=== PATIENT | male | born 1940 | race American Indian/Alaskan Native ===

== ENCOUNTER 2020-09-27 00:52 | Emergency (ER) | payer MEDICARE ==
[2020-09-27 01:36] LABS: Basophils # (Auto) 0.1 K/mm3 (0.0-0.1); Eosinophils # (Auto) 0.1 K/mm3 (0.0-0.4); Eosinophils % (Auto) 2.2 % (0.0-4.3); Hemoglobin 11.5 gm/dl (11.8-15.2); Lymphocytes # (Auto) 1.9 K/mm3 (1.2-5.4); Mean Corpuscular HGB Conc 33 % (32-34); Mean Corpuscular Volume 88 fl (84-94); Monocytes # (Auto) 0.6 K/mm3 (0.0-0.8); Monocytes % (Auto) 9.7 % (0.0-7.3); Platelet Count 210 K/mm3 (140-440); Red Blood Count 3.97 M/mm3 (3.65-5.03); Red Cell Distribution Width 14.4 % (13.2-15.2)
[2020-09-27 01:56] LABS: Alanine Aminotransferase 13 units/L (7-56); Albumin 4.3 g/dL (3.9-5); BUN/Creatinine Ratio 12; Blood Urea Nitrogen 16 mg/dL (9-20); Calcium 9.9 mg/dL (8.4-10.2); Hemolysis Index 77
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
[2020-09-27 02:19] LABS: Bilirubin,Urine NEG (Negative); Blood,Urine NEG (Negative); Color,Urine Yellow (Yellow); Mucus,Urine FEW /HPF; Urobilinogen,Urine < 2.0 mg/dL (<2.0)
[2020-09-27 02:59] LABS: Amphetamine Screen,Urine PRESUMPTIVE NEGATIVE; Benzodiazepines Screen,Urine PRESUMPTIVE NEGATIVE; Cannabinoid Screen,Urine PRESUMPTIVE NEGATIVE; Cocaine Screen,Urine PRESUMPTIVE NEGATIVE; Methadone Screen,Urine PRESUMPTIVE NEGATIVE; Opiate Screen,Urine PRESUMPTIVE NEGATIVE
--- NOTE | 2020-09-27 02:59 | Cat Scan Report ---
CT head without contrast HISTORY: AMS. TECHNIQUE: Axial imaging performed from the skull apex through the skull base without the use of con trast. All CT scans at this location are performed using CT dose reduction for ALARA by means of aut omated exposure control. COMPARISON: MRI of the brain from 06/23/2019 FINDINGS: Parenchyma: No acute intracranial hemorrhage or parenchymal abnormality. Ventricles: There is mild diffuse brain atrophy with commensurate ventricular enlargement which is l ikely age appropriate. Soft tissues: Soft tissues including the orbits appear normal. Bones: No acute osseous abnormality. Sinuses: Sinuses and mastoid air cells are clear. IMPRESSION: No acute abnormality. Signer Name: Perfecto Choudhary MD Signed: 09/27/2020 2:54 AM Workstation Name: [id number]
[2020-09-27] MEDS ORDERED: ZIPRASIDONE MESYLATE 20 MG VIAL IM ONE ×2 (03:35→03:45)
[2020-09-27] MEDS ORDERED: LORazepam 2 MG/ML VIAL IM ONE (07:29)
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
[2020-09-27 17:47] VITALS: BP 149/72
== END 2020-09-27 17:47 ==
LOC: ED 00:52
DX: R41.82 Altered mental status, unspecified (principal); Z20.828 Contact with and (suspected) exposure to other viral communicable diseases; F03.90 Unspecified dementia, unspecified severity, without behavioral disturbance, psychotic disturbance, mood disturbance, and anxiety; F29 Unspecified psychosis not due to a substance or known physiological condition; Z79.899 Other long term (current) drug therapy
CPT/HCPCS: 36415; 70450; 80053; 80307; 81001; 82962; 84484; 85025; 96372; 99284; J2060; J3486; U0003; 80320; G0480

== ENCOUNTER 2020-09-27 16:03 | Inpatient (IN) | payer MEDICARE ==
--- NOTE | 2020-09-27 20:38 | Consultation ---
History of Present Illness - Reason for Consult Consult date: 09/27/20 Requesting physician: LEANNE CAMACHO - History of Present Illness 80 YO Male with Vascular Dementia with Behavioral Disturbance, Cerebral Atherosclerosis, DM admitted to [facility] for Psychiatric stabilization. Patient seen and evaluated and found to be in no acute distress. Patient appears agitated. No reported nursing events. Patient has decreased verbalization. Past History Past Medical History: diabetes, hypertension Past Surgical History: No surgical history, Other (Reviewed) Social history: Family history: diabetes, hypertension Medications and Allergies Allergies Allergy/AdvReac Type Severity Reaction Status Date / Time No Known Allergies Allergy Unverified 09/27/20 16:48 Active Meds: Active Medications Risperidone (Risperdal) 0.5 mg PO BID MICHAEL Review of Systems ROS unobtainable: due to mental status Exam - Constitutional General appearance: Present: no acute distress - EENT Eyes: Present: PERRL ENT: hearing intact, clear oral mucosa - Neck Neck: Present: supple, normal ROM - Respiratory Respiratory effort: normal Respiratory: bilateral: CTA - Cardiovascular Heart Sounds: Present: S1 & S2. Absent: rub, click - Extremities Extremities: pulses symmetrical, No edema Peripheral Pulses: within normal limits - Abdominal General gastrointestinal: Present: soft, non-tender, non-distended, normal bowel sounds Male genitourinary: Present: normal - Integumentary Integumentary: Present: clear, warm, dry - Musculoskeletal Musculoskeletal: gait normal, strength equal bilaterally - Psychiatric Psychiatric: appropriate mood/affect, intact judgment & insight - Neurologic Neurologic: CNII-XII intact, moves all extremities Results - Labs Labs: Abnormal lab results 09/27/20 Range/Units 19:55 POC Glucose 123 H (70-105) mg/dL Assessment and Plan - Patient Problems (1) Vascular dementia with behavioral disturbance Current Visit: Yes Status: Acute Plan to address problem: Verbal prompting, verbal redirection, benzodiazepine therapy as clinically ind icated. (2) Cerebral atherosclerosis Current Visit: Yes Status: Acute Plan to address problem: Risk factor reduction, supportive care. (3) Diabetes Current Visit: Yes Status: Acute Plan to address problem: Accu-Chek, supportive care, continue medical management, insulin protocol.
[2020-09-27] MEDS: risperiDONE 0.25 MG TAB PO SCH (21:14)
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
[2020-09-28] MEDS: risperiDONE 0.25 MG TAB PO SCH ×2 (10:21→22:29)
[2020-09-28] MEDS: QUEtiapine 25 MG TAB PO SCH ×2 (10:21→22:30)
[2020-09-28] MEDS ORDERED: NON-FORMULARY EACH (Clonazepam [Klonopin] 1 MG) PO PRN (20:28)
[2020-09-28] MEDS ORDERED: NON-FORMULARY EACH (Metformin Hcl [Metformin] 1,000 MG) PO SCH (20:30)
[2020-09-28] MEDS ORDERED: INFLUENZA VACCINE IM SCH (20:30)
[2020-09-28] MEDS ORDERED: [UNRECOGNIZED DRUG - OTHER] IM SCH (20:30)
[2020-09-28] MEDS ORDERED: GLIMEPIRIDE 2 MG TAB PO SCH (21:00)
[2020-09-28] MEDS ORDERED: hydrOXYzine HCL 25 MG TAB PO SCH (21:00)
[2020-09-28] MEDS: FINASTERIDE 5 MG TAB PO SCH (21:55)
[2020-09-28] MEDS ORDERED: INSULIN DETEMIR 28 UNIT SQ SCH (22:00)
[2020-09-28] MEDS: PRAVASTATIN 20 MG TAB PO SCH (22:27)
[2020-09-28] MEDS: carvediloL 12.5 MG TAB PO SCH (22:27)
[2020-09-28] MEDS: DONEPEZIL 10 MG TAB PO SCH (22:27)
[2020-09-28] MEDS: INSULIN GLARGINE 100 UNITS/ML SUB-Q SCH (22:47)
[2020-09-29] MEDS: ZIPRASIDONE MESYLATE 20 MG VIAL IM PRN ×2 (04:24→19:25)
[2020-09-29] MEDS ORDERED: QUEtiapine 25 MG TAB PO SCH (07:29)
--- NOTE | 2020-09-29 07:31 | Progress Note ---
Subjective Date of service: 09/29/20 Principal diagnosis: Dementia with behavioral disturbance Subjective Comment: Psych Nurse: Pt was restless, agitated, combative throwing punches at staff, disruptive intruding to peers' , destructive causing damage to property. Pt was difficult to redirect and resistive to care. Geodon 10 IM given as ordered. Will continue to monitor. Psych Progress Patient has history of dementia that is worsening with disturbances such as property destruction and combativity. Due to history of dementia, patient unable to interact appropriately and answer questions logically. Patient behavior will be monitored and medication will be adjusted. Reason for continuing inpatient psychiatric hospitalization: Added Trazodone 100mg and increased Seroquel to 150 mg BID. Will continue to monitor. REVIEW OF SYSTEMS ROS cannot be reliably obtained from the patient due to her confusion and somnolence. MENTAL STATUS EXAMINATION General Appearance and Behavior: Age appropriate, good hygiene, wearing appropriate clothes, uncooperative polite with questioning. Cooperation: Withdrawn Psychomotor Behavior: Psychomotor agitation Mood: N/A Affect and affective range: Flat Thought Process: Tangential Thought Content: Paranoid and confused Speech: Normal volume, Regular rate and rhythm, Intellectual Functioning: Poor Suicidal Ideation: N/A Homicidal Ideation: N/A Impulse Control: impaired Insight and Judgment: Impaired Memory: memory impaired Attention: Distractible, Orientation: Alert, but disoriented and confused Diagnoses: Assessment and Plan - Psychiatric problem (1) Dementia with behavioral disturbance Current Visit: Yes Status: Acute Treatment Plan Risperidone started, Seroquel increased to 50mg BID Patient admitted for inpatient psychiatric evaluation, medication adjustment and close monitoring The patient's behavior, mood, sleep and appetite will be closely monitored. Patient enrolled in individual and group therapeutic sessions and encouraged to attend. Patient provided with a safe and structured environment. Patient's physical health needs will be addressed by the Hospitalist. Hospitalist Consulted Labs including CBC, CMP, Lipid profile and Hemoglobin A1C levels ordered for baseline reference Social Assessment will be completed and the Senior Licensing Manager will work with patient and family to ensure a suitable and safe disposition Medication adjustment will be made as clinically indicated Usual Wellness Scientologist/Preservation: - Start Trazodone 50 mg po QHS & 50 mg po QHS PRN between 10 PM & 2 AM for insomnia - Start Melatonin 5 mg po QHS to promote circadian rhythm - Start Brady-3 for brain health, reduce impulsivity, and as adjunctive treatment for mood disorder, continue upon discharge given overall benefits. - Start B1 prophylaxis with 200 mg po for 5 days The patient agreed on the treatment plan, understood the risk, benefit, alternative treatment, potential consequence of no treatment, and gave informed consent. Initial Certification Inpatient psych services: I certify that the inpatient psychiatric services are required for treatment that could reasonably be expected to improve the patient's condition. Estimated days:6 Post hospital care: primary care provider, psychiatric provider Legal Status: Voluntary Patient Problems: Current Active Problems Cerebral atherosclerosis (Acute) Diabetes (Acute) Vascular dementia with behavioral disturbance (Acute) Medications and Allergies Allergies Allergy/AdvReac Type Severity Reaction Status Date / Time No Known Allergies Allergy Unverified 09/27/20 16:48 Home Medications Medication Instructions Recorded Confirmed Last Taken Type Finasteride [Proscar] 5 mg PO DAILY 09/28/20 09/28/20 Unknown History Flu Vacc Sp5219(65Up)/Mf59c/Pf 0.5 ml IM UNK 09/28/20 09/28/20 Unknown History [Fluad Quad 1554-4558 Syringe] Glimepiride [Amaryl] 2 mg PO UNK 09/28/20 09/28/20 Unknown History Insulin Detemir (Nf) [Levemir 28 unit SQ BID 09/28/20 09/28/20 Unknown History Flextouch (Nf)] Metformin HCl [metFORMIN] 1,000 mg PO UNK 09/28/20 09/28/20 Unknown History Pneumoc 13-Ester Conj-Dip Crm/Pf 0.5 ml IM UNK 09/28/20 09/28/20 Unknown History [Prevnar 13] Pravastatin [Pravachol] 20 mg PO DAILY 09/28/20 09/28/20 Unknown History QUEtiapine [SEROquel] 25 mg PO BID 09/28/20 09/28/20 Unknown History Ramipril 10 mg PO UNK 09/28/20 09/28/20 Unknown History carvediloL [Coreg] 12.5 mg PO BID 09/28/20 09/28/20 Unknown History clonazePAM [Klonopin] 1 mg PO HS PRN 09/28/20 09/28/20 Unknown History donepeziL [Aricept] 10 mg PO QHS 09/28/20 09/28/20 Unknown History hydrOXYzine HCL [Atarax] 25 mg PO UNK 09/28/20 09/28/20 Unknown History Active Meds: Active Medications Carvedilol (Coreg) 12.5 mg PO BID [facility] Last Admin: 09/28/20 22:27 Dose: 12.5 mg Documented by: Clonazepam (Klonopin) 1 mg PO QHS PRN PRN Reason: Anxiety Donepezil HCl (Aricept) 10 mg PO QHS [facility] Last Admin: 09/28/20 22:27 Dose: 10 mg Documented by: Finasteride (Proscar) 5 mg PO DAILY [facility] Last Admin: 09/28/20 21:55 Dose: 5 mg Documented by: Glimepiride (Amaryl) 2 mg PO K [facility] Hydroxyzine HCl (Atarax) 25 mg PO [facility] Insulin Glargine (Lantus) 28 units SUB-Q BID [facility] Last Admin: 09/28/20 22:47 Dose: 28 units Documented by: Miscellaneous Medication (Flu Vacc Je9671(65up)/Mf59c/Pf [Fluad Quad 1089-8512 Syringe]) 0.5 ml IM [facility] Miscellaneous Medication (Metformin Hcl [Metformin]) 1,000 mg PO [facility] Miscellaneous Medication (Ramipril [Ramipril]) 10 mg PO [facility] Pravastatin Sodium (Pravachol) 20 mg PO QHS [facility] Last Admin: 09/28/20 22:27 Dose: 20 mg Documented by: Quetiapine Fumarate (Seroquel) 150 mg PO BID [facility] Ziprasidone (Geodon) 10 mg IM Q6H PRN PRN Reason: Agitation Last Admin: 09/29/20 04:24 Dose: 10 mg Documented by: Results - Results Labs/Vitals: Laboratory Last Values POC Glucose 140 mg/dL (70-105) H 09/29/20 07:07 Last Vital Signs Temp 98.8 F 09/28/20 22:23 Pulse 94 H 09/28/20 22:27 Resp 18 09/28/20 22:23 BP 163/75 09/28/20 22:27 Pulse Ox 95 09/28/20 22:23
[2020-09-29] MEDS: FINASTERIDE 5 MG TAB PO SCH (10:51)
[2020-09-29] MEDS: carvediloL 12.5 MG TAB PO SCH ×3 (10:51→22:27)
[2020-09-29] MEDS: QUEtiapine 100 MG TAB PO SCH ×3 (10:51→22:28)
[2020-09-29] MEDS: INSULIN GLARGINE 100 UNITS/ML SUB-Q SCH (10:55)
[2020-09-29] MEDS ORDERED: DEXTROSE 50% IN WATER (25GM) 50 ML SYRINGE IV PRN (18:40)
--- NOTE | 2020-09-29 18:53 | Progress Note ---
Assessment and Plan Assessment and plan: 80 YO Male with Vascular Dementia with Behavioral Disturbance, Cerebral Atherosclerosis, DM admitted to [facility] for Psychiatric stabilization. Patient seen and evaluated and found to be in no acute distress. Patient appears agitated. No reported nursing events. Patient has decreased verbaliza tion. (1) Diabetes Current Visit: Yes Status: Acute Plan to address problem: Accu-Chek, supportive care, continue medical management, insulin protocol. With hypoglycemia. We will discontinue all oral hypoglycemic agents. Will discontinue Lantus. Use as needed sliding scale. We will also add dextrose gel for hypoglycemia correction as patient is agitated and intolerant of the other medications. Discussed with nursing staff and all the methodologies to use. (2) Cerebral atherosclerosis Current Visit: Yes Status: Acute Plan to address problem: Risk factor reduction, supportive care. (3) Vascular dementia with behavioral disturbance Current Visit: Yes Status: Acute Plan to address problem: Verbal prompting, verbal redirection, benzodiazepine therapy as clinically indicated. History Interval history: Patient seen and examined called due to patient's persistent hypoglycemia. Patient remains very agitated was actually found sitting in another patient's room. Hospitalist Physical - Physical exam Narrative exam: VITAL SIGNS: Reviewed. GENERAL: The patient appears normally developed, agitated. Vital signs as documented. HEAD: No signs of head trauma. EYES: Pupils are equal. Extraocular motions intact. EARS: Hearing grossly intact. MOUTH: Oropharynx is normal. NECK: No adenopathy, no JVD. CHEST: Chest with clear breath sounds bilaterally. No wheezes, rales, or rhonchi. CARDIAC: Regular rate and rhythm. S1 and S2, without murmurs, gallops, or rubs. VASCULAR: No Edema. Peripheral pulses normal and equal in all extremities. ABDOMEN: Soft, non tender and non distended. No rebound or guarding, and no masses palpated. Bowel Sounds normal. MUSCULOSKELETAL: Good range of motion of all major joints. Extremities without clubbing, cyanosis or edema. NEUROLOGIC EXAM: Alert and oriented x 1 No focal sensory or strength deficits. Speech normal. Confusion following commands PSYCHIATRIC: Mood normal. SKIN: detail exam as documented in skin assessment - Constitutional Vitals: Temp Pulse Resp BP Pulse Ox 98.8 F 94 H 18 163/75 95 09/28/20 22:23 09/28/20 22:27 09/28/20 22:23 09/28/20 22:27 09/28/20 22:23 General appearance: Present: no acute distress Results - Labs Labs: Laboratory Last Values POC Glucose 107 mg/dL (70-105) H 09/29/20 16:24 Larson/IV: Voiding Method Toilet Active Medications - Current Medications Current Medications: Generic Name Dose Route Start Last Admin Trade Name Freq PRN Reason Stop Dose Admin Carvedilol 12.5 mg 09/28/20 22:00 09/29/20 10:51 Coreg PO Not Given BID MICHAEL Clonazepam 1 mg 09/28/20 20:49 Klonopin PO QHS PRN Anxiety Dextrose 50 ml 09/29/20 18:40 D50w (25gm) Syringe IV Q30MIN PRN Hypoglycemia Protocol Donepezil HCl 10 mg 09/28/20 22:00 09/28/20 22:27 Aricept PO 10 mg QHS MICHAEL Administration Finasteride 5 mg 09/28/20 21:00 09/29/20 10:51 Proscar PO Not Given DAILY MICHAEL Hydroxyzine HCl 25 mg 09/28/20 21:00 Atarax PO UNK MICHAEL Insulin Human Lispro 0 unit 09/29/20 22:00 Humalog SUB-Q ACHS MICHAEL Protocol Mirtazapine 30 mg 09/29/20 22:00 Remeron PO QHS MICHAEL Miscellaneous Medication 0.5 ml 09/28/20 20:30 Flu Vacc Bo5263(65up)/Mf59c/Pf [Fluad Quad 8965-7102 Syringe] IM UNK MICHAEL Miscellaneous Medication 1,000 mg 09/28/20 20:30 Metformin Hcl [Metformin] PO UNK MICHAEL Miscellaneous Medication 10 mg 09/28/20 20:30 Ramipril [Ramipril] PO UNK MICHAEL Pravastatin Sodium 20 mg 09/28/20 22:00 09/28/20 22:27 Pravachol PO 20 mg QHS MICHAEL Administration Quetiapine Fumarate 150 mg 09/29/20 10:00 09/29/20 10:51 Seroquel PO Not Given BID MICHAEL Ziprasidone 10 mg 09/29/20 04:17 09/29/20 04:24 Geodon IM 10 mg Q6H PRN Administration Agitation
[2020-09-29] MEDS ORDERED: WATER FOR INJ Sterile (PF) 10 ML ONE (19:22)
[2020-09-29] MEDS ORDERED: DEXTROSE/DEXTRIN/MALTOSE 24 GM CARB PER 31 GM TUBE PO PRN (20:29)
[2020-09-29] MEDS ORDERED: MIRTAZAPINE 30 MG TAB PO SCH (22:00)
[2020-09-29] MEDS ORDERED: traZODone 50 MG TAB PO SCH (22:00)
[2020-09-29] MEDS: PRAVASTATIN 20 MG TAB PO SCH ×2 (22:14→22:28)
[2020-09-29] MEDS: DONEPEZIL 10 MG TAB PO SCH ×2 (22:14→22:27)
[2020-09-29] MEDS: MIRTAZAPINE 30 MG TAB PO SCH ×2 (22:14→22:28)
[2020-09-29] MEDS: INSULIN LISPRO 100 UNIT/ML VIAL 3 mL SUB-Q SCH (22:28)
--- NOTE | 2020-09-30 07:37 | Progress Note ---
Subjective Date of service: 09/30/20 Principal diagnosis: Dementia with behavioral disturbance Subjective Comment: Psych Nurse: pt is alert and oriented to person, irritable ,uncooperative, combative toward staff, tried to hit staff several times, he went to another pt's room refused to come out, security assessor was called and pt was brought out of the pt's room. pt refused all po medication, refused snacks, fluid offered, pt refused, BS was 127. pt's initial blood sugar was elevated at 180/100, pulse 104, pt was agitated at the time it was taken. staff tried several times to recheck blood pressure, pt refused and tried to hit the advertising copy writer. security assessor came to unit and took pt to his room; he stay in his room pacing, talking to his self, he finally went to bed at 0115, no distress noted, will continue to monitor for safety. Psych Progress Patient has history of dementia that is worsening , continued with disturbances yesterday, security had to be called in, property destruction and combativity. Due to history of dementia, patient unable to interact appropriately and answer questions logically. Patient behavior will be monitored and medication will be adjusted. Reason for continuing inpatient psychiatric hospitalization: Pt refusing oral medications. Remeron for sleep maintainance, and increased Seroquel to 200 mg BID. Will continue to monitor. REVIEW OF SYSTEMS ROS cannot be reliably obtained from the patient due to her confusion and somnolence. MENTAL STATUS EXAMINATION General Appearance and Behavior: Age appropriate, good hygiene, wearing appropriate clothes, uncooperative polite with questioning. Cooperation: Withdrawn Psychomotor Behavior: Psychomotor agitation Mood: N/A Affect and affective range: Flat Thought Process: Tangential Thought Content: Paranoid and confused Speech: Normal volume, Regular rate and rhythm, Intellectual Functioning: Poor Suicidal Ideation: N/A Homicidal Ideation: N/A Impulse Control: impaired Insight and Judgment: Impaired Memory: memory impaired Attention: Distractible, Orientation: Alert, but disoriented and confused Diagnoses: Assessment and Plan - Psychiatric problem (1) Dementia with behavioral disturbance Current Visit: Yes Status: Acute Treatment Plan Hold off PO meds due to refusal. Will put Pt on Geodon BID 2 doses. check Vitals q2-4 hours. Risperidone started, Seroquel increased to 50mg BID Patient admitted for inpatient psychiatric evaluation, medication adjustment and close monitoring The patient's behavior, mood, sleep and appetite will be closely monitored. Patient enrolled in individual and group therapeutic sessions and encouraged to attend. Patient provided with a safe and structured environment. Patient's physical health needs will be addressed by the Hospitalist. Hospitalist Consulted Labs including CBC, CMP, Lipid profile and Hemoglobin A1C levels ordered for lynn miranda reference Social Assessment will be completed and the Accounting Systems Manager will work with patient and family to ensure a suitable and safe disposition Medication adjustment will be made as clinically indicated Usual Wellness Confucianism/Preservation: - Start Trazodone 50 mg po QHS & 50 mg po QHS PRN between 10 PM & 2 AM for insomnia - Start Melatonin 5 mg po QHS to promote circadian rhythm - Start Letona-3 for brain health, reduce impulsivity, and as adjunctive treatment for mood disorder, continue upon discharge given overall benefits. - Start B1 prophylaxis with 200 mg po for 5 days The patient agreed on the treatment plan, understood the risk, benefit, alternative treatment, potential consequence of no treatment, and gave informed consent. Initial Certification Inpatient psych services: I certify that the inpatient psychiatric services are required for treatment that could reasonably be expected to improve the patient's condition. Estimated days:5 Post hospital care: primary care provider, psychiatric provider Legal Status: Voluntary Patient Problems: Current Active Problems Cerebral atherosclerosis (Acute) Diabetes (Acute) Vascular dementia with behavioral disturbance (Acute) Medications and Allergies Allergies Allergy/AdvReac Type Severity Reaction Status Date / Time No Known Allergies Allergy Unverified 09/27/20 16:48 Home Medications Medication Instructions Recorded Confirmed Last Taken Type Finasteride [Proscar] 5 mg PO DAILY 09/28/20 09/28/20 Unknown History Flu Vacc [id number](65Up)/Mf59c/Pf 0.5 ml IM UNK 09/28/20 09/28/20 Unknown History [Fluad Quad 8823-8741 Syringe] Glimepiride [Amaryl] 2 mg PO UNK 09/28/20 09/28/20 Unknown History Insulin Detemir (Nf) [Levemir 28 unit SQ BID 09/28/20 09/28/20 Unknown History Flextouch (Nf)] Metformin HCl [metFORMIN] 1,000 mg PO UNK 09/28/20 09/28/20 Unknown History Pneumoc 13-Ester Conj-Dip Crm/Pf 0.5 ml IM UNK 09/28/20 09/28/20 Unknown History [Prevnar 13] Pravastatin [Pravachol] 20 mg PO DAILY 09/28/20 09/28/20 Unknown History QUEtiapine [SEROquel] 25 mg PO BID 09/28/20 09/28/20 Unknown History Ramipril 10 mg PO UNK 09/28/20 09/28/20 Unknown History carvediloL [Coreg] 12.5 mg PO BID 09/28/20 09/28/20 Unknown History clonazePAM [Klonopin] 1 mg PO HS PRN 09/28/20 09/28/20 Unknown History donepeziL [Aricept] 10 mg PO QHS 09/28/20 09/28/20 Unknown History hydrOXYzine HCL [Atarax] 25 mg PO UNK 09/28/20 09/28/20 Unknown History Active Meds: Active Medications Carvedilol (Coreg) 12.5 mg PO BID [facility] Last Admin: 09/29/20 22:27 Dose: Not Given Documented by: Clonazepam (Klonopin) 1 mg PO QHS PRN PRN Reason: Anxiety Dextrose (D50w (25gm) Syringe) 50 ml IV Q30MIN PRN; Protocol PRN Reason: Hypoglycemia Donepezil HCl (Aricept) 10 mg PO QHS [facility] Last Admin: 09/29/20 22:27 Dose: Not Given Documented by: Finasteride (Proscar) 5 mg PO DAILY [facility] Last Admin: 09/29/20 10:51 Dose: Not Given Documented by: Hydroxyzine HCl (Atarax) 25 mg PO K [facility] Insulin Human Lispro (Humalog) 0 unit SUB-Q [facility]; Protocol Last Admin: 09/29/20 22:28 Dose: Not Given Documented by: Mirtazapine (Remeron) 30 mg PO QHS [facility] Last Admin: 09/29/20 22:28 Dose: Not Given Documented by: Miscellaneous Medication (Metformin Hcl [Metformin]) 1,000 mg PO K [facility] Miscellaneous Medication (Ramipril [Ramipril]) 10 mg PO [facility] Pravastatin Sodium (Pravachol) 20 mg PO QHS [facility] Last Admin: 09/29/20 22:28 Dose: Not Given Documented by: Quetiapine Fumarate (Seroquel) 200 mg PO BID [facility] Results - Results Labs/Vitals: Laboratory Last Values POC Glucose 87 mg/dL (70-105) 09/30/20 05:56 Last Vital Signs Temp 98.8 F 09/28/20 22:23 Pulse 104 H 09/29/20 22:27 Resp 18 09/28/20 22:23 BP 180/100 09/29/20 22:27 Pulse Ox 95 09/28/20 22:23
[2020-09-30] MEDS: INSULIN LISPRO 100 UNIT/ML VIAL 3 mL SUB-Q SCH ×3 (08:49→16:50)
[2020-09-30] MEDS ORDERED: DEXTROSE/DEXTRIN/MALTOSE 24 GM CARB PER 31 GM TUBE PO PRN (10:00)
[2020-09-30] MEDS ORDERED: WATER FOR INJ Sterile (PF) 10 ML ONE (11:17)
[2020-09-30] MEDS: QUEtiapine 100 MG TAB PO SCH ×2 (11:27→22:04)
[2020-09-30] MEDS: FINASTERIDE 5 MG TAB PO SCH (11:27)
[2020-09-30] MEDS: carvediloL 12.5 MG TAB PO SCH ×2 (11:27→22:06)
[2020-09-30] MEDS: ZIPRASIDONE MESYLATE 20 MG VIAL IM SCH ×2 (12:51→22:13)
--- NOTE | 2020-09-30 15:30 | Progress Note ---
Assessment and Plan Assessment and plan: 80 YO Male with Vascular Dementia with Behavioral Disturbance, Cerebral Atherosclerosis, DM admitted to [facility] for Psychiatric stabilization. Patient seen and evaluated and found to be in no acute distress. Patient appears agitated. No reported nursing events. Patient has decreased verbaliza tion. 09/30: Continue current care, do not restart oral hypoglycemic agents at this time. (1) Diabetes Current Visit: Yes Status: Acute Plan to address problem: Accu-Chek, supportive care, continue medical management, insulin protocol. With hypoglycemia. We will discontinue all oral hypoglycemic agents. Will discontinue Lantus. Use as needed sliding scale. We will also add dextrose gel for hypoglycemia correction as patient is agitated and intolerant of the other medications. Discussed with nursing staff and all the methodologies to use. (2) Cerebral atherosclerosis Current Visit: Yes Status: Acute Plan to address problem: Risk factor reduction, supportive care. (3) Vascular dementia with behavioral disturbance Current Visit: Yes Status: Acute Plan to address problem: Verbal prompting, verbal redirection, benzodiazepine therapy as clinically indicated. History Interval history: Patient seen and examined called due to patient's persistent hypoglycemia. No new complaints, BG stable Hospitalist Physical - Physical exam Narrative exam: VITAL SIGNS: Reviewed. GENERAL: The patient appears normally developed, agitated. Vital signs as documented. HEAD: No signs of head trauma. EYES: Pupils are equal. Extraocular motions intact. EARS: Hearing grossly intact. MOUTH: Oropharynx is normal. NECK: No adenopathy, no JVD. CHEST: Chest with clear breath sounds bilaterally. No wheezes, rales, or rhonchi. CARDIAC: Regular rate and rhythm. S1 and S2, without murmurs, gallops, or rubs. VASCULAR: No Edema. Peripheral pulses normal and equal in all extremities. ABDOMEN: Soft, non tender and non distended. No rebound or guarding, and no masses palpated. Bowel Sounds normal. MUSCULOSKELETAL: Good range of motion of all major joints. Extremities without clubbing, cyanosis or edema. NEUROLOGIC EXAM: Alert and oriented x 1 No focal sensory or strength deficits. Speech normal. Confusion following commands PSYCHIATRIC: Mood normal. SKIN: detail exam as documented in skin assessment - Constitutional Vitals: Temp Pulse Resp BP Pulse Ox 97.6 F 87 18 184/78 94 09/30/20 11:22 09/30/20 11:22 09/30/20 11:22 09/30/20 11:22 09/30/20 11:22 General appearance: Present: no acute distress Results - Labs Labs: Laboratory Last Values POC Glucose 109 mg/dL (70-105) H 09/30/20 11:44 Larson/IV: Voiding Method Incontinent Active Medications - Current Medications Current Medications: Generic Name Dose Route Start Last Admin Trade Name Freq PRN Reason Stop Dose Admin Carvedilol 12.5 mg 09/28/20 22:00 09/30/20 11:27 Coreg PO 12.5 mg BID MICHAEL Administration Clonazepam 1 mg 09/28/20 20:49 Klonopin PO QHS PRN Anxiety Dextrose 50 ml 09/29/20 18:40 D50w (25gm) Syringe IV Q30MIN PRN Hypoglycemia Protocol Donepezil HCl 10 mg 09/28/20 22:00 09/29/20 22:27 Aricept PO Not Given QHS [facility] Finasteride 5 mg 09/28/20 21:00 09/30/20 11:27 Proscar PO 5 mg DAILY MICHAEL Administration Hydroxyzine HCl 25 mg 09/28/20 21:00 Atarax PO UNK [facility] Insulin Human Lispro 0 unit 09/29/20 22:00 09/30/20 12:20 Humalog SUB-Q Not Given ACHS [facility] Protocol Mirtazapine 30 mg 09/29/20 22:00 09/29/20 22:28 Remeron PO Not Given QHS [facility] Miscellaneous Medication 1,000 mg 09/28/20 20:30 Metformin Hcl [Metformin] PO UNK [facility] Miscellaneous Medication 10 mg 09/28/20 20:30 Ramipril [Ramipril] PO UNK [facility] Pravastatin Sodium 20 mg 09/28/20 22:00 09/29/20 22:28 Pravachol PO Not Given QHS MICHAEL Quetiapine Fumarate 200 mg 09/30/20 09:00 09/30/20 11:27 Seroquel PO 200 mg BID MICHAEL Administration Valproic Acid 250 mg 09/30/20 14:00 Depakene PO TID MICHAEL Ziprasidone 10 mg 09/30/20 10:00 09/30/20 12:51 Geodon IM 09/30/20 22:01 10 mg BID MICHAEL Administration
[2020-09-30] MEDS: VALPROIC ACID 250 MG CAP PO SCH ×2 (16:50→22:03)
[2020-09-30] MEDS: PRAVASTATIN 20 MG TAB PO SCH (22:04)
[2020-09-30] MEDS: MIRTAZAPINE 30 MG TAB PO SCH (22:04)
[2020-09-30] MEDS: clonazePAM 0.5 MG TAB PO PRN (22:05)
[2020-09-30] MEDS: DONEPEZIL 10 MG TAB PO SCH (22:06)
[2020-10-01] MEDS: INSULIN LISPRO 100 UNIT/ML VIAL 3 mL SUB-Q SCH ×5 (04:33→21:32)
--- NOTE | 2020-10-01 09:03 | Progress Note ---
Subjective Date of service: 10/01/20 Principal diagnosis: Dementia with behavioral disturbance Subjective Comment: The patient's medical record was reviewed and the patient's progress was discussed with the nursing staff. The nurse caring for the patient says he has been combative and not eating much. During my interview with the patient, he is lying in bed. He is confused, and unable to give insight into what's going on with him. Reason for continuing inpatient psychiatric hospitalization: Pt refusing oral medications, episodes of combativeness. REVIEW OF SYSTEMS ROS cannot be reliably obtained from the patient due to her confusion and somnolence. MENTAL STATUS EXAMINATION General Appearance and Behavior: Age appropriate, good hygiene, wearing appropriate clothes, uncooperative Cooperation: Withdrawn Psychomotor Behavior: Psychomotor agitation Mood: N/A Affect and affective range: Flat Thought Process: Tangential Thought Content: Paranoid and confused Speech: Normal volume, Regular rate and rhythm, Intellectual Functioning: Poor Suicidal Ideation: N/A Homicidal Ideation: N/A Impulse Control: impaired Insight and Judgment: Impaired Memory: memory impaired Attention: Distractible, Orientation: Alert, but disoriented and confused Assessment and Plan (1) Dementia with behavioral disturbance Current Visit: Yes Status: Acute Treatment Plan Patient admitted for inpatient psychiatric evaluation, medication adjustment and close monitoring The patient's behavior, mood, sleep and appetite will be closely monitored. Patient enrolled in individual and group therapeutic sessions and encouraged to attend. Patient provided with a safe and structured environment. Patient's physical health needs will be addressed by the Hospitalist. Hospitalist Consulted Labs including CBC, CMP, Lipid profile and Hemoglobin A1C levels ordered for baseline reference Valproic level 10/02 Social Assessment will be completed and the Save All Operator will work with patient and family to ensure a suitable and safe disposition Medication adjustment will be made as clinically indicated Decrease seroquel 100mg po BID, will Start Risperidone 0.25mg po BID Usual Wellness Sikhism/Preservation: - Start Trazodone 50 mg po QHS & 50 mg po QHS PRN between 10 PM & 2 AM for insomnia - Start Melatonin 5 mg po QHS to promote circadian rhythm - Start [place]-3 for brain health, reduce impulsivity, and as adjunctive treatme nt for mood disorder, continue upon discharge given overall benefits. - Start B1 prophylaxis with 200 mg po for 5 days The patient agreed on the treatment plan, understood the risk, benefit, alterna tive treatment, potential consequence of no treatment, and gave informed consent. Estimated days: 4 Post hospital care: primary care provider, psychiatric provider Case staffed with Dr. Meraz Medications and Allergies Allergies Allergy/AdvReac Type Severity Reaction Status Date / Time No Known Allergies Allergy Unverified 09/27/20 16:48 Home Medications Medication Instructions Recorded Confirmed Last Taken Type Finasteride [Proscar] 5 mg PO DAILY 09/28/20 09/28/20 Unknown History Flu Vacc [id number](65Up)/Mf59c/Pf 0.5 ml IM UNK 09/28/20 09/28/20 Unknown History [Fluad Quad 0297-2764 Syringe] Glimepiride [Amaryl] 2 mg PO UNK 09/28/20 09/28/20 Unknown History Insulin Detemir (Nf) [Levemir 28 unit SQ BID 09/28/20 09/28/20 Unknown History Flextouch (Nf)] Metformin HCl [metFORMIN] 1,000 mg PO UNK 09/28/20 09/28/20 Unknown History Pneumoc 13-Ester Conj-Dip Crm/Pf 0.5 ml IM UNK 09/28/20 09/28/20 Unknown History [Prevnar 13] Pravastatin [Pravachol] 20 mg PO DAILY 09/28/20 09/28/20 Unknown History QUEtiapine [SEROquel] 25 mg PO BID 09/28/20 09/28/20 Unknown History Ramipril 10 mg PO UNK 09/28/20 09/28/20 Unknown History carvediloL [Coreg] 12.5 mg PO BID 09/28/20 09/28/20 Unknown History clonazePAM [Klonopin] 1 mg PO HS PRN 09/28/20 09/28/20 Unknown History donepeziL [Aricept] 10 mg PO QHS 09/28/20 09/28/20 Unknown History hydrOXYzine HCL [Atarax] 25 mg PO UNK 09/28/20 09/28/20 Unknown History Active Meds: Active Medications Carvedilol (Coreg) 12.5 mg PO BID [facility]HAEL Last Admin: 09/30/20 22:06 Dose: 12.5 mg Documented by: Clonazepam (Klonopin) 1 mg PO QHS PRN PRN Reason: Anxiety Last Admin: 09/30/20 22:05 Dose: 1 mg Documented by: Dextrose (D50w (25gm) Syringe) 50 ml IV Q30MIN PRN; Protocol PRN Reason: Hypoglycemia Donepezil HCl (Aricept) 10 mg PO QHS [facility] Last Admin: 09/30/20 22:06 Dose: 10 mg Documented by: Finasteride (Proscar) 5 mg PO DAILY [facility] Last Admin: 09/30/20 11:27 Dose: 5 mg Documented by: Hydroxyzine HCl (Atarax) 25 mg PO UNK [facility] Insulin Human Lispro (Humalog) 0 unit SUB-Q ACHS [facility]; Protocol Last Admin: 10/01/20 07:32 Dose: Not Given Documented by: Mirtazapine (Remeron) 30 mg PO QHS [facility] Last Admin: 09/30/20 22:04 Dose: 30 mg Documented by: Miscellaneous Medication (Metformin Hcl [Metformin]) 1,000 mg PO K [facility] Miscellaneous Medication (Ramipril [Ramipril]) 10 mg PO UNK [facility] Pravastatin Sodium (Pravachol) 20 mg PO QHS [facility] Last Admin: 09/30/20 22:04 Dose: 20 mg Documented by: Quetiapine Fumarate (Seroquel) 200 mg PO BID [facility] Last Admin: 09/30/20 22:04 Dose: 200 mg Documented by: Valproic Acid (Depakene) 250 mg PO TID [facility] Last Admin: 09/30/20 22:03 Dose: 250 mg Documented by: Results - Results Labs/Vitals: Laboratory Last Values POC Glucose 108 mg/dL (70-105) H 10/01/20 07:01 Last Vital Signs Temp 98.4 F 09/30/20 20:15 Pulse 68 09/30/20 22:06 Resp 18 09/30/20 20:15 BP 164/75 09/30/20 22:06 Pulse Ox 97 09/30/20 20:15
[2020-10-01] MEDS: FINASTERIDE 5 MG TAB PO SCH (12:14)
[2020-10-01] MEDS: risperiDONE 0.25 MG TAB PO SCH ×2 (12:14→21:31)
[2020-10-01] MEDS: QUEtiapine 100 MG TAB PO SCH ×2 (12:15→21:32)
[2020-10-01] MEDS: VALPROIC ACID 250 MG CAP PO SCH ×3 (12:15→20:46)
[2020-10-01] MEDS: carvediloL 12.5 MG TAB PO SCH ×2 (12:17→21:36)
[2020-10-01] MEDS: PRAVASTATIN 20 MG TAB PO SCH (21:31)
[2020-10-01] MEDS: MIRTAZAPINE 30 MG TAB PO SCH (21:31)
[2020-10-01] MEDS: DONEPEZIL 10 MG TAB PO SCH (21:31)
[2020-10-02] MEDS: INSULIN LISPRO 100 UNIT/ML VIAL 3 mL SUB-Q SCH ×4 (07:30→21:06)
--- NOTE | 2020-10-02 08:27 | Progress Note ---
Subjective Date of service: 10/02/20 Principal diagnosis: Dementia with behavioral disturbance Subjective Comment: The patient's medical record was reviewed and the patient's progress was discussed with the nursing staff. The nurse note states the patient refused to go to bed, pacing and mumbling back and front the unit. Observed that the medication has kicked in as he began to stagger and at the greater risk of fall. While resisting, commercial insurance underwriter led pt to the room with eyes half opened. During my interview with the patient, he is lying in bed. He is confused, and unable to give insight into what's going on with him. He does state "I wanna take a nap." Reason for continuing inpatient psychiatric hospitalization: Pt refusing oral medications, episodes of combativeness. REVIEW OF SYSTEMS ROS cannot be reliably obtained from the patient due to her confusion and somnolence. MENTAL STATUS EXAMINATION General Appearance and Behavior: Age appropriate, good hygiene, wearing appropriate clothes, uncooperative Cooperation: Withdrawn Psychomotor Behavior: Psychomotor agitation Mood: N/A Affect and affective range: Flat Thought Process: Tangential Thought Content: Paranoid and confused Speech: Normal volume, Regular rate and rhythm, Intellectual Functioning: Poor Suicidal Ideation: N/A Homicidal Ideation: N/A Impulse Control: impaired Insight and Judgment: Impaired Memory: memory impaired Attention: Distractible, Orientation: Alert, but disoriented and confused Assessment and Plan (1) Dementia with behavioral disturbance Current Visit: Yes Status: Acute Treatment Plan Patient admitted for inpatient psychiatric evaluation, medication adjustment and close monitoring The patient's behavior, mood, sleep and appetite will be closely monitored. Patient enrolled in individual and group therapeutic sessions and encouraged to attend. Patient provided with a safe and structured environment. Patient's physical health needs will be addressed by the Hospitalist. Hospitalist Consulted Labs including CBC, CMP, Lipid profile and Hemoglobin A1C levels ordered for baseline reference Valproic level 10/02 Social Assessment will be completed and the Boating Safety Officer will work with patient and family to ensure a suitable and safe disposition Medication adjustment will be made as clinically indicated Decrease seroquel 50mg po BID, will Increased Risperidone 0.5mg po BID Start Klonopin 0.25mg po daily, in addition to 1mg qhs Usual Wellness Bahai/Preservation: - Start Trazodone 50 mg po QHS & 50 mg po QHS PRN between 10 PM & 2 AM for insomnia - Start Melatonin 5 mg po QHS to promote circadian rhythm - Start [place]-3 for brain health, reduce impulsivity, and as adjunctive treatment for mood disorder, continue upon discharge given overall benefits. - Start B1 prophylaxis with 200 mg po for 5 days The patient agreed on the treatment plan, understood the risk, benefit, alternative treatment, potential consequence of no treatment, and gave informed consent. Estimated days: 2 Post hospital care: primary care provider, psychiatric provider Case staffed with Dr. Meraz Medications and Allergies Allergies Allergy/AdvReac Type Severity Reaction Status Date / Time No Known Allergies Allergy Unverified 09/27/20 16:48 Home Medications Medication Instructions Recorded Confirmed Last Taken Type Finasteride [Proscar] 5 mg PO DAILY 09/28/20 09/28/20 Unknown History Flu Vacc Ar4442(65Up)/Mf59c/Pf 0.5 ml IM UNK 09/28/20 09/28/20 Unknown History [Fluad Quad 7308-3848 Syringe] Glimepiride [Amaryl] 2 mg PO UNK 09/28/20 09/28/20 Unknown History Insulin Detemir (Nf) [Levemir 28 unit SQ BID 09/28/20 09/28/20 Unknown History Flextouch (Nf)] Metformin HCl [metFORMIN] 1,000 mg PO UNK 09/28/20 09/28/20 Unknown History Pneumoc 13-Ester Conj-Dip Crm/Pf 0.5 ml IM UNK 09/28/20 09/28/20 Unknown History [Prevnar 13] Pravastatin [Pravachol] 20 mg PO DAILY 09/28/20 09/28/20 Unknown History QUEtiapine [SEROquel] 25 mg PO BID 09/28/20 09/28/20 Unknown History Ramipril 10 mg PO UNK 09/28/20 09/28/20 Unknown History carvediloL [Coreg] 12.5 mg PO BID 09/28/20 09/28/20 Unknown History clonazePAM [Klonopin] 1 mg PO HS PRN 09/28/20 09/28/20 Unknown History donepeziL [Aricept] 10 mg PO QHS 09/28/20 09/28/20 Unknown History hydrOXYzine HCL [Atarax] 25 mg PO UNK 09/28/20 09/28/20 Unknown History Active Meds: Active Medications Carvedilol (Coreg) 12.5 mg PO BID [facility] Last Admin: 10/01/20 21:36 Dose: 12.5 mg Documented by: Clonazepam (Klonopin) 1 mg PO QHS PRN PRN Reason: Anxiety Last Admin: 09/30/20 22:05 Dose: 1 mg Documented by: Dextrose (D50w (25gm) Syringe) 50 ml IV Q30MIN PRN; Protocol PRN Reason: Hypoglycemia Donepezil HCl (Aricept) 10 mg PO QHS [facility] Last Admin: 10/01/20 21:31 Dose: 10 mg Documented by: Finasteride (Proscar) 5 mg PO DAILY [facility] Last Admin: 10/01/20 12:14 Dose: 5 mg Documented by: Hydroxyzine HCl (Atarax) 25 mg PO UNK [facility] Insulin Human Lispro (Humalog) 0 unit SUB-Q ACHS [facility]; Protocol Last Admin: 10/01/20 21:32 Dose: Not Given Documented by: Mirtazapine (Remeron) 30 mg PO QHS [facility] Last Admin: 10/01/20 21:31 Dose: 30 mg Documented by: Miscellaneous Medication (Metformin Hcl [Metformin]) 1,000 mg PO K [facility] Miscellaneous Medication (Ramipril [Ramipril]) 10 mg PO K [facility] Pravastatin Sodium (Pravachol) 20 mg PO QHS [facility] Last Admin: 10/01/20 21:31 Dose: 20 mg Documented by: Quetiapine Fumarate (Seroquel) 100 mg PO BID [facility] Last Admin: 10/01/20 21:32 Dose: 100 mg Documented by: Risperidone (Risperdal) 0.25 mg PO BID [facility] Last Admin: 10/01/20 21:31 Dose: 0.25 mg Documented by: Valproic Acid (Depakene) 250 mg PO TID [facility] Last Admin: 10/01/20 20:46 Dose: 250 mg Documented by: Ziprasidone (Geodon) 10 mg IM Q4H PRN PRN Reason: Agitation Results - Results Labs/Vitals: Laboratory Last Values POC Glucose 82 mg/dL (70-105) 10/02/20 06:54 Last Vital Signs Temp 97.4 F L 10/01/20 22:00 Pulse 83 10/01/20 22:00 Resp 20 10/01/20 22:00 BP 146/95 10/01/20 22:00 Pulse Ox 98 10/01/20 22:00
[2020-10-02] MEDS: QUEtiapine 25 MG TAB PO SCH ×2 (10:33→21:03)
[2020-10-02] MEDS: clonazePAM 0.5 MG TAB PO SCH (10:33)
[2020-10-02] MEDS: VALPROIC ACID 250 MG CAP PO SCH ×3 (10:33→20:10)
[2020-10-02] MEDS: FINASTERIDE 5 MG TAB PO SCH (10:34)
[2020-10-02] MEDS: carvediloL 12.5 MG TAB PO SCH ×2 (10:34→21:04)
[2020-10-02] MEDS: risperiDONE 0.25 MG TAB PO SCH ×2 (10:37→21:04)
[2020-10-02] MEDS: clonazePAM 0.5 MG TAB PO PRN (20:10)
[2020-10-02] MEDS: DONEPEZIL 10 MG TAB PO SCH (21:03)
[2020-10-02] MEDS: PRAVASTATIN 20 MG TAB PO SCH (21:04)
[2020-10-02] MEDS: MIRTAZAPINE 30 MG TAB PO SCH (21:04)
[2020-10-02] MEDS ORDERED: WATER FOR INJ Sterile (PF) 10 ML ONE (21:37)
[2020-10-02] MEDS: ZIPRASIDONE MESYLATE 20 MG VIAL IM PRN (21:54)
[2020-10-03] MEDS: INSULIN LISPRO 100 UNIT/ML VIAL 3 mL SUB-Q SCH (07:30)
--- NOTE | 2020-10-03 08:26 | Progress Note ---
Subjective Date of service: 10/03/20 Principal diagnosis: Dementia with behavioral disturbance Subjective Comment: The patient's medical record was reviewed and the patient's progress was discussed with the nursing staff. The nurse caring for the patient today states he is more talkative and with it during the day but gets confused, agitated, and hyper in the evening. During my interview with the patient, he is lying in bed. He is confused. When asking the patient why was he fighting the nurses yesterday, he replied "I wasn't fighting nobody. They don't know what they talking about." The patient then starts mumbling. Reason for continuing inpatient psychiatric hospitalization: the patient has episodes of agitation REVIEW OF SYSTEMS ROS cannot be reliably obtained from the patient due to her confusion and somnolence. MENTAL STATUS EXAMINATION General Appearance and Behavior: Age appropriate, good hygiene, wearing appropriate clothes, uncooperative Cooperation: Withdrawn Psychomotor Behavior: Psychomotor agitation Mood: N/A Affect and affective range: Flat Thought Process: Tangential Thought Content: Paranoid and confused Speech: Normal volume, Regular rate and rhythm, Intellectual Functioning: Poor Suicidal Ideation: N/A Homicidal Ideation: N/A Impulse Control: impaired Insight and Judgment: Impaired Memory: memory impaired Attention: Distractible, Orientation: Alert, but disoriented and confused Assessment and Plan (1) Dementia with behavioral disturbance Current Visit: Yes Status: Acute Treatment Plan Patient admitted for inpatient psychiatric evaluation, medication adjustment and close monitoring The patient's behavior, mood, sleep and appetite will be closely monitored. Patient enrolled in individual and group therapeutic sessions and encouraged to attend. Patient provided with a safe and structured environment. Patient's physical health needs will be addressed by the Hospitalist. Hospitalist Consulted Labs including CBC, CMP, Lipid profile and Hemoglobin A1C levels ordered for baseline reference Valproic level 47.9 Social Assessment will be completed and the Consulting Intern will work with patient and family to ensure a suitable and safe disposition Medication adjustment will be made as clinically indicated Increased Depakote DR 500mg po TID Give Klonopin 1mg po daily in the evening vs qhs also changed to scheduled vs PRN Decrease Seroquel 25mg po BID Increased Risperidone 1mg po BID Usual Wellness Voodoo/Preservation: - Start Trazodone 50 mg po QHS & 50 mg po QHS PRN between 10 PM & 2 AM for insomnia - Start Melatonin 5 mg po QHS to promote circadian rhythm - Start [place]-3 for brain health, reduce impulsivity, and as adjunctive treatment for mood disorder, continue upon discharge given overall benefits. - Start B1 prophylaxis with 200 mg po for 5 days The patient agreed on the treatment plan, understood the risk, benefit, alternative treatment, potential consequence of no treatment, and gave informed consent. Estimated days: 2 Post hospital care: primary care provider, psychiatric provider Case staffed with Dr. Meraz Medications and Allergies Allergies Allergy/AdvReac Type Severity Reaction Status Date / Time No Known Allergies Allergy Unverified 09/27/20 16:48 Home Medications Medication Instructions Recorded Confirmed Last Taken Type Finasteride [Proscar] 5 mg PO DAILY 09/28/20 09/28/20 Unknown History Flu Vacc [id number](65Up)/Mf59c/Pf 0.5 ml IM UNK 09/28/20 09/28/20 Unknown History [Fluad Quad 6503-1010 Syringe] Glimepiride [Amaryl] 2 mg PO UNK 09/28/20 09/28/20 Unknown History Insulin Detemir (Nf) [Levemir 28 unit SQ BID 09/28/20 09/28/20 Unknown History Flextouch (Nf)] Metformin HCl [metFORMIN] 1,000 mg PO UNK 09/28/20 09/28/20 Unknown History Pneumoc 13-Ester Conj-Dip Crm/Pf 0.5 ml IM UNK 09/28/20 09/28/20 Unknown History [Prevnar 13] Pravastatin [Pravachol] 20 mg PO DAILY 09/28/20 09/28/20 Unknown History QUEtiapine [SEROquel] 25 mg PO BID 09/28/20 09/28/20 Unknown History Ramipril 10 mg PO UNK 09/28/20 09/28/20 Unknown History carvediloL [Coreg] 12.5 mg PO BID 09/28/20 09/28/20 Unknown History clonazePAM [Klonopin] 1 mg PO HS PRN 09/28/20 09/28/20 Unknown History donepeziL [Aricept] 10 mg PO QHS 09/28/20 09/28/20 Unknown History hydrOXYzine HCL [Atarax] 25 mg PO UNK 09/28/20 09/28/20 Unknown History Active Meds: Active Medications Carvedilol (Coreg) 12.5 mg PO BID [facility] Last Admin: 10/02/20 21:04 Dose: 12.5 mg Documented by: Clonazepam (Klonopin) 1 mg PO QHS PRN PRN Reason: Anxiety Last Admin: 10/02/20 20:10 Dose: 1 mg Documented by: Clonazepam (Klonopin) 0.25 mg PO DAILY [facility] Last Admin: 10/02/20 10:33 Dose: 0.25 mg Documented by: Dextrose (D50w (25gm) Syringe) 50 ml IV Q30MIN PRN; Protocol PRN Reason: Hypoglycemia Donepezil HCl (Aricept) 10 mg PO QHS [facility] Last Admin: 10/02/20 21:03 Dose: 10 mg Documented by: Finasteride (Proscar) 5 mg PO DAILY [facility] Last Admin: 10/02/20 10:34 Dose: 5 mg Documented by: Hydroxyzine HCl (Atarax) 25 mg PO UNK [facility] Insulin Human Lispro (Humalog) 0 unit SUB-Q ACHS [facility]; Protocol Last Admin: 10/02/20 21:06 Dose: Not Given Documented by: Mirtazapine (Remeron) 30 mg PO QHS [facility] Last Admin: 10/02/20 21:04 Dose: 30 mg Documented by: Miscellaneous Medication (Metformin Hcl [Metformin]) 1,000 mg PO [facility] Miscellaneous Medication (Ramipril [Ramipril]) 10 mg PO [facility] Pravastatin Sodium (Pravachol) 20 mg PO QHS [facility] Last Admin: 10/02/20 21:04 Dose: 20 mg Documented by: Quetiapine Fumarate (Seroquel) 50 mg PO BID [facility] Last Admin: 10/02/20 21:03 Dose: 50 mg Documented by: Risperidone (Risperdal) 0.5 mg PO BID [facility] Last Admin: 10/02/20 21:04 Dose: 0.5 mg Documented by: Ziprasidone (Geodon) 10 mg IM Q4H PRN PRN Reason: Agitation Last Admin: 10/02/20 21:54 Dose: 10 mg Documented by: Results - Results Labs/Vitals: Laboratory Last Values POC Glucose 149 mg/dL (70-105) H 10/03/20 06:10 Valproic Acid 47.9 ug/mL (50-100) L 12/05/20 10:07 Last Vital Signs Temp 97.8 F 10/02/20 22:00 Pulse 60 10/02/20 22:00 Resp 18 10/02/20 22:00 BP 160/62 10/02/20 22:00 Pulse Ox 98 10/02/20 22:00
--- NOTE | 2020-10-03 11:18 | Progress Note ---
Assessment and Plan Assessment and plan: 80 YO Male with Vascular Dementia with Behavioral Disturbance, Cerebral Atherosclerosis, DM admitted to [facility] for Psychiatric stabilization. Patient seen and evaluated and found to be in no acute distress. Patient appears agitated. No reported nursing events. Patient has decreased verbaliza tion. 09/30: Continue current care, do not restart oral hypoglycemic agents at this time. 10/03: We will discontinue insulin sliding scale and start patient on low-dose Metformin 500 mg p.o. twice daily and check hemoglobin A1c. (1) Diabetes Current Visit: Yes Status: Acute Plan to address problem: Accu-Chek, supportive care, continue medical management, insulin protocol. With hypoglycemia. We will discontinue all oral hypoglycemic agents. Will discontinue Lantus. Use as needed sliding scale. We will also add dextrose gel for hypoglycemia correction as patient is agitated and intolerant of the other medications. Discussed with nursing staff and all the methodologies to use. (2) Cerebral atherosclerosis Current Visit: Yes Status: Acute Plan to address problem: Risk factor reduction, supportive care. (3) Vascular dementia with behavioral disturbance Current Visit: Yes Status: Acute Plan to address problem: Verbal prompting, verbal redirection, benzodiazepine therapy as clinically indicated. History Interval history: Patient seen and examined nursing staff reports that patient did have another episode of hypoglycemia after taking 2 units of insulin Hospitalist Physical - Physical exam Narrative exam: VITAL SIGNS: Reviewed. GENERAL: The patient appears normally developed,. Vital signs as documented. HEAD: No signs of head trauma. EYES: Pupils are equal. Extraocular motions intact. EARS: Hearing grossly intact. MOUTH: Oropharynx is normal. NECK: No adenopathy, no JVD. CHEST: Chest with clear breath sounds bilaterally. No wheezes, rales, or rhonchi. CARDIAC: Regular rate and rhythm. S1 and S2, without murmurs, gallops, or rubs. VASCULAR: No Edema. Peripheral pulses normal and equal in all extremities. ABDOMEN: Soft, non tender and non distended. No rebound or guarding, and no masses palpated. Bowel Sounds normal. MUSCULOSKELETAL: Good range of motion of all major joints. Extremities without clubbing, cyanosis or edema. NEUROLOGIC EXAM: Alert and oriented x 1 No focal sensory or strength deficits. Speech normal. Confusion following commands PSYCHIATRIC: Mood normal. SKIN: detail exam as documented in skin assessment - Constitutional Vitals: Temp Pulse Resp BP Pulse Ox 97.8 F 60 18 160/62 98 10/02/20 22:00 10/02/20 22:00 10/02/20 22:00 10/02/20 22:00 10/02/20 22:00 General appearance: Present: no acute distress Results - Labs Labs: Laboratory Last Values POC Glucose 149 mg/dL (70-105) H 10/03/20 06:10 Valproic Acid 47.9 ug/mL (50-100) L 10/02/20 10:07 [place]arson/IV: Voiding Method Toilet Active Medications - Current Medications Current Medications: Generic Name Dose Route Start Last Admin Trade Name Freq PRN Reason Stop Dose Admin Carvedilol 12.5 mg 09/28/20 22:00 10/02/20 21:04 Coreg PO 12.5 mg BID MICHAEL Administration Clonazepam 0.25 mg 10/02/20 10:00 10/02/20 10:33 Klonopin PO 0.25 mg DAILY MICHAEL Administration Clonazepam 1 mg 10/03/20 22:00 Klonopin PO QHS MICHAEL Dextrose 50 ml 09/29/20 18:40 D50w (25gm) Syringe IV Q30MIN PRN Hypoglycemia Protocol Divalproex Sodium 500 mg 10/03/20 14:[address] PO TID MICHAEL Donepezil HCl 10 mg 09/28/20 22:00 10/02/20 21:03 Aricept PO 10 mg QHS MICHAEL Administration Finasteride 5 mg 09/28/20 21:00 10/02/20 10:34 Proscar PO 5 mg DAILY MICHAEL Administration Hydroxyzine HCl 25 mg 09/28/20 21:00 Atarax PO UNK MICHAEL Metformin HCl 500 mg 10/03/20 17:00 Glucophage PO BIDDIAB MICHAEL Mirtazapine 30 mg 09/29/20 22:00 10/02/20 21:04 Remeron PO 30 mg QHS MICHAEL Administration Miscellaneous Medication 1,000 mg 09/28/20 20:30 Metformin Hcl [Metformin] PO UNK MICHAEL Miscellaneous Medication 10 mg 09/28/20 20:30 Ramipril [Ramipril] PO UNK MICHAEL Pravastatin Sodium 20 mg 09/28/20 22:00 10/02/20 21:04 Pravachol PO 20 mg QHS MICHAEL Administration Quetiapine Fumarate 25 mg 10/03/20 11:00 Seroquel PO BID MICHAEL Risperidone 1 mg 10/03/20 11:00 Risperdal PO BID MICHAEL Ziprasidone 10 mg 10/01/20 19:00 10/02/20 21:54 Geodon IM 10 mg Q4H PRN Administration Agitation
[2020-10-03] MEDS: FINASTERIDE 5 MG TAB PO SCH (12:58)
[2020-10-03] MEDS: risperiDONE 1 MG TAB PO SCH ×2 (12:58→21:39)
[2020-10-03] MEDS: QUEtiapine 25 MG TAB PO SCH ×2 (12:58→21:39)
[2020-10-03] MEDS: clonazePAM 0.5 MG TAB PO SCH (13:00)
[2020-10-03] MEDS: carvediloL 12.5 MG TAB PO SCH ×2 (13:43→21:35)
[2020-10-03] MEDS: DIVALPROEX DR 500 MG TAB PO SCH ×2 (13:58→20:24)
[2020-10-03] MEDS: metFORMIN 500 MG TAB PO SCH (16:28)
[2020-10-03] MEDS: VALPROIC ACID 250 MG CAP PO SCH (18:49)
[2020-10-03] MEDS: DONEPEZIL 10 MG TAB PO SCH (21:39)
[2020-10-03] MEDS: PRAVASTATIN 20 MG TAB PO SCH (21:39)
[2020-10-03] MEDS: MIRTAZAPINE 30 MG TAB PO SCH (21:39)
[2020-10-03] MEDS ORDERED: WATER FOR INJ Sterile (PF) 10 ML ONE (21:50)
[2020-10-03] MEDS ORDERED: clonazePAM 0.5 MG TAB PO SCH (22:00)
[2020-10-03] MEDS: ZIPRASIDONE MESYLATE 20 MG VIAL IM PRN (22:21)
--- NOTE | 2020-10-04 08:28 | Progress Note ---
Subjective Date of service: 10/04/20 Principal diagnosis: Dementia with behavioral disturbance Subjective Comment: The patient's medical record was reviewed and the patient's progress was discussed with the nursing staff. The nurse note states the patient spent the evening in bed, pt is alert and oriented to person, confused, disorganized, gait is very unsteady, high risk for fall, medication compliant, had about 75% of snack, pt became increasingly confused at approximately 2100, agitated, hallucinating, calling ''ADEN", yelling, struggling to get of the bed, combative, pt was very difficult to redirect During my interview with the patient, he is lying in bed. He is confused. When asking the patient how was he doing, he says "okay." When asked if he slept good, the patient says "a lil bit, ma'am." He then starts mumbling. Reason for continuing inpatient psychiatric hospitalization: the patient has episodes of agitation, and restlessness at night REVIEW OF SYSTEMS ROS cannot be reliably obtained from the patient due to her confusion and somnolence. MENTAL STATUS EXAMINATION General Appearance and Behavior: Age appropriate, good hygiene, wearing appropriate clothes, calm Cooperation: Withdrawn Psychomotor Behavior: Psychomotor agitation Mood: alright Affect and affective range: Flat Thought Process: Tangential Thought Content: Paranoid and confused Speech: Normal volume, Regular rate and rhythm, Intellectual Functioning: Poor Suicidal Ideation: N/A Homicidal Ideation: N/A Impulse Control: impaired Insight and Judgment: Impaired Memory: memory impaired Attention: Distractible, Orientation: Alert, but disoriented and confused Assessment and Plan (1) Dementia with behavioral disturbance Current Visit: Yes Status: Acute Treatment Plan Patient admitted for inpatient psychiatric evaluation, medication adjustment and close monitoring The patient's behavior, mood, sleep and appetite will be closely monitored. Patient enrolled in individual and group therapeutic sessions and encouraged to attend. Patient provided with a safe and structured environment. Patient's physical health needs will be addressed by the Hospitalist. Hospitalist Consulted Labs including CBC, CMP, Lipid profile and Hemoglobin A1C levels ordered for baseline reference Valproic level 47.9 Social Assessment will be completed and the Lead Teller will work with patient and family to ensure a suitable and safe disposition Medication adjustment will be made as clinically indicated d/c daytime klonopin Increased Klonopin 1.5mg po qhs d/c Seroquel 25mg po BID Start Melatonin 5mg po at 1800 Usual Wellness Catholic/Preservation: - Start Trazodone 50 mg po QHS & 50 mg po QHS PRN between 10 PM & 2 AM for insomnia - Start Melatonin 5 mg po QHS to promote circadian rhythm - Start [place]-3 for brain health, reduce impulsivity, and as adjunctive treatment for mood disorder, continue upon discharge given overall benefits. - Start B1 prophylaxis with 200 mg po for 5 days The patient agreed on the treatment plan, understood the risk, benefit, alternative treatment, potential consequence of no treatment, and gave informed consent. Estimated days: 2 Post hospital care: primary care provider, psychiatric provider Case staffed with Dr. Meraz Medications and Allergies Allergies Allergy/AdvReac Type Severity Reaction Status Date / Time No Known Allergies Allergy Unverified 09/27/20 16:48 Home Medications Medication Instructions Recorded Confirmed Last Taken Type Finasteride [Proscar] 5 mg PO DAILY 09/28/20 09/28/20 Unknown History Flu Vacc [id number](65Up)/Mf59c/Pf 0.5 ml IM UNK 09/28/20 09/28/20 Unknown History [Fluad Quad 9141-4211 Syringe] Glimepiride [Amaryl] 2 mg PO UNK 09/28/20 09/28/20 Unknown History Insulin Detemir (Nf) [Levemir 28 unit SQ BID 09/28/20 09/28/20 Unknown History Flextouch (Nf)] Metformin HCl [metFORMIN] 1,000 mg PO UNK 09/28/20 09/28/20 Unknown History Pneumoc 13-Ester Conj-Dip Crm/Pf 0.5 ml IM UNK 09/28/20 09/28/20 Unknown History [Prevnar 13] Pravastatin [Pravachol] 20 mg PO DAILY 09/28/20 09/28/20 Unknown History QUEtiapine [SEROquel] 25 mg PO BID 09/28/20 09/28/20 Unknown History Ramipril 10 mg PO UNK 09/28/20 09/28/20 Unknown History carvediloL [Coreg] 12.5 mg PO BID 09/28/20 09/28/20 Unknown History clonazePAM [Klonopin] 1 mg PO HS PRN 09/28/20 09/28/20 Unknown History donepeziL [Aricept] 10 mg PO QHS 09/28/20 09/28/20 Unknown History hydrOXYzine HCL [Atarax] 25 mg PO UNK 09/28/20 09/28/20 Unknown History Active Meds: Active Medications Carvedilol (Coreg) 12.5 mg PO BID [facility] Last Admin: 10/03/20 21:35 Dose: 12.5 mg Documented by: Clonazepam (Klonopin) 1.5 mg PO QHS [facility] Dextrose (D50w (25gm) Syringe) 50 ml IV Q30MIN PRN; Protocol PRN Reason: Hypoglycemia Divalproex Sodium (Depakote Dr) 500 mg PO TID [facility] Last Admin: 10/03/20 20:24 Dose: 500 mg Documented by: Donepezil HCl (Aricept) 10 mg PO QHS [facility] Last Admin: 10/03/20 21:39 Dose: 10 mg Documented by: Finasteride (Proscar) 5 mg PO DAILY [facility] Last Admin: 10/03/20 12:58 Dose: 5 mg Documented by: Hydroxyzine HCl (Atarax) 25 mg PO UNK [facility] Melatonin (Melatonin) 5 mg PO 1800 [facility] Metformin HCl (Glucophage) 500 mg PO BIDDIAB [facility] Last Admin: 10/03/20 16:28 Dose: 500 mg Documented by: Mirtazapine (Remeron) 30 mg PO QHS [facility] Last Admin: 10/03/20 21:39 Dose: 30 mg Documented by: Miscellaneous Medication (Metformin Hcl [Metformin]) 1,000 mg PO UNK [facility] Miscellaneous Medication (Ramipril [Ramipril]) 10 mg PO UNK [facility] Pravastatin Sodium (Pravachol) 20 mg PO QHS [facility] Last Admin: 10/03/20 21:39 Dose: 20 mg Documented by: Risperidone (Risperdal) 1 mg PO BID [facility] Last Admin: 10/03/20 21:39 Dose: 1 mg Documented by: Results - Results Labs/Vitals: Laboratory Last Values POC Glucose 147 mg/dL (70-105) H 10/04/20 06:19 Valproic Acid 47.9 ug/mL (50-100) L 10/02/20 10:07 Last Vital Signs Temp 98.4 F 10/03/20 22:00 Pulse 78 10/03/20 22:00 Resp 18 10/03/20 22:00 BP 166/70 10/03/20 22:00 Pulse Ox 96 10/03/20 22:00
[2020-10-04] MEDS: metFORMIN 500 MG TAB PO SCH ×2 (12:42→18:00)
[2020-10-04] MEDS: LISINOPRIL 20 MG TAB PO SCH (12:42)
[2020-10-04] MEDS: carvediloL 12.5 MG TAB PO SCH ×2 (12:43→21:34)
[2020-10-04] MEDS: risperiDONE 1 MG TAB PO SCH ×2 (12:43→21:33)
[2020-10-04] MEDS: FINASTERIDE 5 MG TAB PO SCH (12:43)
[2020-10-04] MEDS: DIVALPROEX DR 500 MG TAB PO SCH ×3 (12:44→20:26)
[2020-10-04] MEDS: MELATONIN 5 MG TAB PO SCH (18:00)
[2020-10-04] MEDS: PRAVASTATIN 20 MG TAB PO SCH (21:33)
[2020-10-04] MEDS: MIRTAZAPINE 30 MG TAB PO SCH (21:33)
[2020-10-04] MEDS: clonazePAM 0.5 MG TAB PO SCH (21:34)
[2020-10-04] MEDS: DONEPEZIL 10 MG TAB PO SCH (21:38)
--- NOTE | 2020-10-05 08:12 | Progress Note ---
Subjective Date of service: 10/05/20 Principal diagnosis: Dementia with behavioral disturbance Subjective Comment: The patient's medical record was reviewed and the patient's progress was discussed with the nursing staff. The nurse note states the patient rested w/o incident overnight. No resistance to treatment regiments and no acute distress observed. During my interview with the patient, he is lying in bed. He is confused. The patient says he's doing "okay." He says he slept "good" when asked. He is calm and cooperative. Reason for continuing inpatient psychiatric hospitalization: The patient seems to have had a better night last night due to medication changes made. Will continue to monitor the patient for effectiveness of meds. REVIEW OF SYSTEMS ROS cannot be reliably obtained from the patient due to her confusion and somnol ence. MENTAL STATUS EXAMINATION General Appearance and Behavior: Age appropriate, good hygiene, wearing appropriate clothes, calm Cooperation: Withdrawn Psychomotor Behavior: Psychomotor agitation Mood: alright Affect and affective range: Flat Thought Process: Tangential Thought Content: Paranoid and confused Speech: Normal volume, Regular rate and rhythm, Intellectual Functioning: Poor Suicidal Ideation: N/A Homicidal Ideation: N/A Impulse Control: impaired Insight and Judgment: Impaired Memory: memory impaired Attention: Distractible, Orientation: Alert, but disoriented and confused Assessment and Plan (1) Dementia with behavioral disturbance Current Visit: Yes Status: Acute Treatment Plan Patient admitted for inpatient psychiatric evaluation, medication adjustment and close monitoring The patient's behavior, mood, sleep and appetite will be closely monitored. Patient enrolled in individual and group therapeutic sessions and encouraged to attend. Patient provided with a safe and structured environment. Patient's physical health needs will be addressed by the Hospitalist. Hospitalist Consulted Labs including CBC, CMP, Lipid profile and Hemoglobin A1C levels ordered for baseline reference Valproic level 47.9 Social Assessment will be completed and the Principal Web Developer will work with patient and family to ensure a suitable and safe disposition Medication adjustment will be made as clinically indicated several medication changes made yesterday, none today Usual Wellness [employer]ism/Preservation: - Start Trazodone 50 mg po QHS & 50 mg po QHS PRN between 10 PM & 2 AM for insomnia - Start Melatonin 5 mg po QHS to promote circadian rhythm - Start [place]-3 for brain health, reduce impulsivity, and as adjunctive treatment for mood disorder, continue upon discharge given overall benefits. - Start B1 prophylaxis with 200 mg po for 5 days The patient agreed on the treatment plan, understood the risk, benefit, alternative treatment, potential consequence of no treatment, and gave informed consent. Estimated days: 2 Post hospital care: primary care provider, psychiatric provider Case staffed with Dr. Meraz Medications and Allergies Allergies Allergy/AdvReac Type Severity Reaction Status Date / Time No Known Allergies Allergy Unverified 09/27/20 16:48 Home Medications Medication Instructions Recorded Confirmed Last Taken Type Finasteride [Proscar] 5 mg PO DAILY 09/28/20 09/28/20 Unknown History Flu Vacc Pt5418(65Up)/Mf59c/Pf 0.5 ml IM UNK 09/28/20 09/28/20 Unknown History [Fluad Quad 0193-8154 Syringe] Glimepiride [Amaryl] 2 mg PO UNK 09/28/20 09/28/20 Unknown History Insulin Detemir (Nf) [Levemir 28 unit SQ BID 09/28/20 09/28/20 Unknown History Flextouch (Nf)] Metformin HCl [metFORMIN] 1,000 mg PO UNK 09/28/20 09/28/20 Unknown History Pneumoc 13-Ester Conj-Dip Crm/Pf 0.5 ml IM UNK 09/28/20 09/28/20 Unknown History [Prevnar 13] Pravastatin [Pravachol] 20 mg PO DAILY 09/28/20 09/28/20 Unknown History QUEtiapine [SEROquel] 25 mg PO BID 09/28/20 09/28/20 Unknown History Ramipril 10 mg PO UNK 09/28/20 09/28/20 Unknown History carvediloL [Coreg] 12.5 mg PO BID 09/28/20 09/28/20 Unknown History clonazePAM [Klonopin] 1 mg PO HS PRN 09/28/20 09/28/20 Unknown History donepeziL [Aricept] 10 mg PO QHS 09/28/20 09/28/20 Unknown History hydrOXYzine HCL [Atarax] 25 mg PO UNK 09/28/20 09/28/20 Unknown History Active Meds: Active Medications Carvedilol (Coreg) 12.5 mg PO BID [facility] Last Admin: 10/04/20 21:34 Dose: 12.5 mg Documented by: Clonazepam (Klonopin) 1.5 mg PO QHS [facility] Last Admin: 10/04/20 21:34 Dose: 1.5 mg Documented by: Dextrose (D50w (25gm) Syringe) 50 ml IV Q30MIN PRN; Protocol PRN Reason: Hypoglycemia Divalproex Sodium (Depakote Dr) 500 mg PO TID [facility] Last Admin: 10/04/20 20:26 Dose: 500 mg Documented by: Donepezil HCl (Aricept) 10 mg PO QHS [facility] Last Admin: 10/04/20 21:38 Dose: 10 mg Documented by: Finasteride (Proscar) 5 mg PO DAILY [facility] Last Admin: 10/04/20 12:43 Dose: 5 mg Documented by: Lisinopril (Zestril) 20 mg PO QDAY [facility] Last Admin: 10/04/20 12:42 Dose: 20 mg Documented by: Melatonin (Melatonin) 5 mg PO 1800 [facility] Last Admin: 10/04/20 18:00 Dose: 5 mg Documented by: Metformin HCl (Glucophage) 500 mg PO BIDDIAB [facility] Last Admin: 10/04/20 18:00 Dose: 500 mg Documented by: Mirtazapine (Remeron) 30 mg PO QHS [facility] Last Admin: 10/04/20 21:33 Dose: 30 mg Documented by: Pravastatin Sodium (Pravachol) 20 mg PO QHS [facility] Last Admin: 10/04/20 21:33 Dose: 20 mg Documented by: Risperidone (Risperdal) 1 mg PO BID [facility] Last Admin: 10/04/20 21:33 Dose: 1 mg Documented by: Results - Results Labs/Vitals: Laboratory Last Values POC Glucose 171 mg/dL (70-105) H 10/05/20 06:21 Valproic Acid 47.9 ug/mL (50-100) L 10/02/20 10:07 Last Vital Signs Temp 97.4 F L 10/04/20 19:36 Pulse 82 10/04/20 21:34 Resp 20 10/04/20 19:36 BP 139/77 10/04/20 21:34 Pulse Ox 99 10/04/20 19:36
[2020-10-05] MEDS: DIVALPROEX DR 500 MG TAB PO SCH ×3 (10:23→20:40)
[2020-10-05] MEDS: LISINOPRIL 20 MG TAB PO SCH (14:24)
[2020-10-05] MEDS: metFORMIN 500 MG TAB PO SCH ×2 (14:25→17:30)
[2020-10-05] MEDS: risperiDONE 1 MG TAB PO SCH ×2 (14:25→21:26)
[2020-10-05] MEDS: carvediloL 12.5 MG TAB PO SCH ×2 (14:26→21:26)
[2020-10-05] MEDS: FINASTERIDE 5 MG TAB PO SCH (14:26)
--- NOTE | 2020-10-05 15:22 | XRay Report ---
CHEST 1 VIEW 10/05/2020 12:47 PM INDICATION / CLINICAL INFORMATION: r/o TB. COMPARISON: None available. FINDINGS: SUPPORT DEVICES: None. HEART / MEDIASTINUM: Atherosclerotic calcifications are noted in the aortic arch. LUNGS / PLEURA: There is mild venous congestion. No focal infiltrate is seen. No airspace disease is seen. No pneumothorax. ADDITIONAL FINDINGS: No significant additional findings. IMPRESSION: 1. There is mild venous congestion. No focal infiltrate is seen. Signer Name: Bhupinder Roberts MD Signed: 10/05/2020 3:18 PM Workstation Name: [id number]
[2020-10-05] MEDS: MELATONIN 5 MG TAB PO SCH (17:30)
--- NOTE | 2020-10-05 20:50 | Progress Note ---
Assessment and Plan - Patient Problems (1) Vascular dementia with behavioral disturbance Current Visit: Yes Status: Acute Plan to address problem: Verbal prompting, verbal redirection, benzodiazepine therapy as clinically indicated. (2) Cerebral atherosclerosis Current Visit: Yes Status: Acute Plan to address problem: Risk factor reduction, supportive care. (3) Diabetes Current Visit: Yes Status: Acute Plan to address problem: Accu-Chek, supportive care, continue medical management, insulin protocol. History Interval history: 80 YO Male with Vascular Dementia with Behavioral Disturbance, Cerebral Atherosclerosis, DM admitted to [facility] for Psychiatric stabilization. Patient seen and evaluated in the recreation room and found to be in no acute distress. No reported nursing events. Patient has decreased verbalization. Hospitalist Physical - Constitutional Vitals: Temp Pulse Resp BP Pulse Ox 98.1 F 72 18 139/66 94 10/05/20 14:15 10/05/20 14:24 10/05/20 14:15 10/05/20 14:24 10/05/20 14:15 General appearance: Present: no acute distress - EENT Eyes: Present: PERRL ENT: hearing intact - Neck Neck: Present: supple - Respiratory Respiratory effort: normal Respiratory: bilateral: CTA - Cardiovascular Rhythm: regular Heart Sounds: Present: S1 & S2 - Extremities Extremities: no ischemia Peripheral Pulses: within normal limits - Abdominal General gastrointestinal: soft, non-tender, non-distended - Integumentary Integumentary: Present: clear, dry - Psychiatric Psychiatric: cooperative - Neurologic Neurologic: CNII-XII intact Results - Labs Labs: Laboratory Last Values POC Glucose 128 mg/dL (70-105) H 10/05/20 20:05 Valproic Acid 47.9 ug/mL (50-100) L 10/02/20 10:07 [place]/IV: Voiding Method Incontinent Active Medications - Current Medications Current Medications: Generic Name Dose Route Start Last Admin Trade Name Freq PRN Reason Stop Dose Admin Carvedilol 12.5 mg 09/28/20 22:00 10/05/20 14:26 Coreg PO 12.5 mg BID MICHAEL Administration Clonazepam 1.5 mg 10/04/20 22:00 10/04/20 21:34 Klonopin PO 1.5 mg QHS MICHAEL Administration Dextrose 50 ml 09/29/20 18:40 D50w (25gm) Syringe IV Q30MIN PRN Hypoglycemia Protocol Divalproex Sodium 500 mg 10/03/20 14:00 10/05/20 14:[address] PO 500 mg TID MICHAEL Administration Donepezil HCl 10 mg 09/28/20 22:00 10/04/20 21:38 Aricept PO 10 mg QHS MICHAEL Administration Finasteride 5 mg 09/28/20 21:00 10/05/20 14:26 Proscar PO 5 mg DAILY MICHAEL Administration Lisinopril 20 mg 10/04/20 10:00 10/05/20 14:24 Zestril PO 20 mg QDAY MICHAEL Administration Melatonin 5 mg 10/04/20 18:00 10/05/20 17:30 Melatonin PO 5 mg 1800 MICHAEL Administration Metformin HCl 500 mg 10/03/20 17:00 10/05/20 17:30 Glucophage PO 500 mg BIDDIAB MICHAEL Administration Mirtazapine 30 mg 09/29/20 22:00 10/04/20 21:33 Remeron PO 30 mg QHS MICHAEL Administration Pravastatin Sodium 20 mg 09/28/20 22:00 10/04/20 21:33 Pravachol PO 20 mg QHS MICHAEL Administration Risperidone 1 mg 10/03/20 11:00 10/05/20 14:25 Risperdal PO 1 mg BID MICHAEL Administration Nutrition/Malnutrition Assess - Dietary Evaluation Nutrition/Malnutrition Findings: Nutrition Notes Start: 10/04/20 14:01 Freq: Status: Active Protocol: Document 10/04/20 14:01 (Rec: 10/04/20 14:03 [id number]) Nutrition Notes Need for Assessment generated from: LOS Initial or Follow up Brief Note Other Pertinent Diagnosis Dementia Current Diet Cardiac/Consistent CHO Subjective/Other Information Screen for LOS. Per RN, pt sleeps through breakfast and sometimes lunch. Pt eats 100% of meals when awake and also consumes snacks. Pt had no questions or concerns. Nutrition Intervention Revisit per MD consult or patient Sign Off request:
[2020-10-05] MEDS: PRAVASTATIN 20 MG TAB PO SCH (21:25)
[2020-10-05] MEDS: MIRTAZAPINE 30 MG TAB PO SCH (21:25)
[2020-10-05] MEDS: DONEPEZIL 10 MG TAB PO SCH (21:26)
[2020-10-05] MEDS: clonazePAM 0.5 MG TAB PO SCH (21:27)
[2020-10-06] MEDS ORDERED: ZIPRASIDONE MESYLATE 20 MG VIAL IM PRN (00:40)
--- NOTE | 2020-10-06 09:04 | Discharge Summary ---
Providers - Providers Date of Admission: 09/27/20 17:49 Date of discharge: 10/06/20 Attending physician: LEANNE CAMACHO MD 09/27/20 16:40 Consult to Physician [CONS] Routine Comment: Consulting Provider: AARON CARABALLO Physician Instructions: Reason For Exam: Medical Management Primary care physician: [facility] Hospitalization Reason for admission: agitation Admitting Diagnosis: F02.81 - DEMENTIA IN OTH DISEASES CLASSD ELSWHR W BEHAVIORAL DISTURB Hospital course: The patient was provided inpatient psychiatric treatment with safe and supportive care, medication adjustment, adverse effect monitoring, medical evaluations, medical treatments, assessment and psycho-education. The patient's mood, cognition, behavior, moral support are improved and stabilized. St the time of discharge, the patient had no endangering behavior and no debilitating adverse effects. The patient agreed on potential consequences of no treatment and gave informed consent. Disposition: DC-01 TO HOME OR SELFCARE Time spent for discharge: 39 Allergies/Adverse Reactions: Allergies No Known Allergies Allergy (Unverified 09/27/20 16:48) Vital Signs: Last Vital Signs Temp 98.5 F 10/05/20 19:15 Pulse 78 10/05/20 21:26 Resp 20 10/05/20 19:15 BP 136/73 10/05/20 21:26 Pulse Ox 98 10/05/20 19:15 Last Lab: Laboratory Last Values POC Glucose 113 mg/dL (70-105) H 10/06/20 08:01 Valproic Acid 47.9 ug/mL (50-100) L 10/02/20 10:07 Core Measure Documentation - Palliative Care Palliative Care/ Comfort Measures: Not Applicable - Core Measures Any of the following diagnoses?: none Exam - Constitutional Vitals: Temp Pulse Resp BP Pulse Ox 98.5 F 78 20 136/73 98 10/05/20 19:15 10/05/20 21:26 10/05/20 19:15 10/05/20 21:26 10/05/20 19:15 General appearance: Present: no acute distress - EENT Eyes: Present: PERRL, EOM intact ENT: hearing intact, clear oral mucosa - Neck Neck: Present: supple, normal ROM - Respiratory Respiratory effort: normal Plan Activity: advance as tolerated Weight Bearing Status: Weight Bear as Tolerated Care Plan Goals: Maintain good and stable mental health Plan of Treatment: The patient should be compliant with medications, not to use drugs, and not to drink alcohol. The patient understands that if suicidal ideas, homicidal ideas or any endangering feeling arise, the patient should seek assistance including, but not limited to crisis hotline, and emergency room. Health Concerns: DM, Vas Dementia, Cerebral athersclerosis Assessment: Dementia w/Behavioral Disturbance [facility] Prescriptions: Mirtazapine [Remeron 30mg TAB] 30 mg PO QHS #[address] [Depakote Dr] 500 mg PO TID #90 tablet clonazePAM [Klonopin] 1.5 mg PO HS PRN #45 PRN Reason: UTD Melatonin [Melatonin 5MG TAB] 5 mg PO 1800 #30 tablet risperiDONE [RisperDAL] 1 mg PO BID #60 tablet
[2020-10-06 12:44] VITALS: BP 149/83
[2020-10-06] MEDS: FINASTERIDE 5 MG TAB PO SCH (12:44)
[2020-10-06] MEDS: risperiDONE 1 MG TAB PO SCH (12:44)
[2020-10-06] MEDS: metFORMIN 500 MG TAB PO SCH (12:44)
[2020-10-06] MEDS: DIVALPROEX DR 500 MG TAB PO SCH (12:44)
[2020-10-06] MEDS: LISINOPRIL 20 MG TAB PO SCH (12:45)
[2020-10-06] MEDS: carvediloL 12.5 MG TAB PO SCH (12:45)
== END 2020-10-06 15:30 | disposition home or self-care (01) | DRG 884 ==
LOC: 3A 16:03 → UNDOADMIN 16:03 → 5A 17:49
PROVIDERS: ADMIT Psychiatry & Neurology Psychiatry; ATTEND Psychiatry & Neurology Psychiatry
DX: F03.91 Unspecified dementia, unspecified severity, with behavioral disturbance (principal); Z20.828 Contact with and (suspected) exposure to other viral communicable diseases; I67.2 Cerebral atherosclerosis; E11.9 Type 2 diabetes mellitus without complications; I10 Essential (primary) hypertension; Z83.3 Family history of diabetes mellitus; Z82.49 Family history of ischemic heart disease and other diseases of the circulatory system; Z63.4 Disappearance and death of family member; Z79.899 Other long term (current) drug therapy; Z79.84 Long term (current) use of oral hypoglycemic drugs
CPT/HCPCS: 36415; 70450; 71045; 80053; 80164; 80307; 80320; 81001; 82962; 84484; 85025; 96372; G0378; A9270-GY; G0480; J1815; J2060; J3486; U0003